=== PATIENT | female | born 1965 ===

== ENCOUNTER 2016-12-22 12:43 | Day surgery (SDC) | payer SELFPAY ==
[2016-12-22] MEDS ORDERED: PENICILLIN V K 250 MG TABLET. PO SCH (18:00)
== END 2017-01-09 10:23 | disposition home or self-care (01) ==
LOC: SDC 12:43
PROVIDERS: ATTEND Internal Medicine
DX: Z53.21 Procedure and treatment not carried out due to patient leaving prior to being seen by health care provider (principal)
CPT/HCPCS: 36415; 84132